=== PATIENT | female | born 1990 | race Caucasian/White ===

== ENCOUNTER 2025-04-14 07:35 | Day surgery (SDC) | payer BC, OTHER ==
[2025-04-13 09:10] VITALS: BMI 29.9
[2025-04-14 10:51] VITALS: TEMP 98.3
[2025-04-14 11:15] VITALS: RESP 16
[2025-04-14 12:00] VITALS: BP 113/68; PULSE 70
== END 2025-04-14 11:40 | disposition home or self-care (01) ==
LOC: JASU-ENDO 07:35
PROVIDERS: ATTEND Internal Medicine Gastroenterology
PROC: 0DB78ZX Excision of Stomach, Pylorus, Via Natural or Artificial Opening Endoscopic, Diagnostic (ICD-10-PCS; 2025-04-14)
PROC: 0DB68ZX Excision of Stomach, Via Natural or Artificial Opening Endoscopic, Diagnostic (ICD-10-PCS; 2025-04-14)
PROC: 0DB98ZX Excision of Duodenum, Via Natural or Artificial Opening Endoscopic, Diagnostic (ICD-10-PCS; principal; 2025-04-14 09:30)
DX: K29.50 Unspecified chronic gastritis without bleeding (principal)
CPT/HCPCS: 81025; 88305-TC; 88341-TC; 88342-TC